=== PATIENT | male | born 1970 | race Caucasian/White ===

== ENCOUNTER → 2019-01-15 | Outpatient (CLI) | payer BC ==
--- NOTE | 2019-01-15 09:18 | REP ---
MAXILLOFACIAL CT WITHOUT CONTRAST: HISTORY: Nasal polyps. Mild mucosal thickening is present in the ethmoid, maxillary and left frontal sinuses. Minimal mucosal thickening is present in the sphenoid and right frontal sinuses. Mucosal thickening involves the osteomeatal units. The middle and inferior nasal turbinates are partially paradoxical. There is minimal deviation of the nasal septum to the right. The cribriform plate, medial lyle of the orbits and optic canals are intact. The carotid canals form a segment of the posterolateral lyle of the sphenoid sinus. Soft tissue densities are present in the nasal passage consistent with polyps. IMPRESSION: 1. Sinus mucosal thickening as described above. 2. There are soft tissue densities in the nasal passage consistent with polyps. Electronically Signed by Pio West MD 01/15/2019 09:27 A
== END ==
LOC: M RAD 07:05
PROVIDERS: ATTEND Otolaryngology
DX: J33.9 Nasal polyp, unspecified (principal); J32.0 Chronic maxillary sinusitis; J32.1 Chronic frontal sinusitis; J32.2 Chronic ethmoidal sinusitis

== ENCOUNTER → 2020-03-04 | Outpatient (REF) | payer BC | LOC: M LAB REF 16:16 | PROVIDERS: ATTEND Dermatology | DX: D22.5 Melanocytic nevi of trunk (principal) ==

== ENCOUNTER → 2021-07-27 | Outpatient (REF) | payer BC | LOC: M LAB REF 19:04 | PROVIDERS: ATTEND Physician Assistant | DX: C44.310 Basal cell carcinoma of skin of unspecified parts of face (principal) ==

== ENCOUNTER → 2021-08-07 | Outpatient (REF) | LOC: M EMP 08:15 | PROVIDERS: ATTEND Family Medicine | DX: Z11.52 Encounter for screening for COVID-19 (principal) ==

== ENCOUNTER → 2021-11-10 | Outpatient (CLI) | payer SELFPAY | LOC: M LABSMTC 12:21 | PROVIDERS: ATTEND Pediatrics | DX: Z20.822 Contact with and (suspected) exposure to COVID-19 (principal) ==

== ENCOUNTER → 2021-11-24 | Outpatient (REF) | LOC: M LABSMTC 13:08 | PROVIDERS: ATTEND Family Medicine | DX: Z20.822 Contact with and (suspected) exposure to COVID-19 (principal) ==

== ENCOUNTER → 2023-07-19 | Outpatient (CLI) | payer BC | LOC: M SLEEP HO 10:49 | PROVIDERS: ATTEND Nurse Practitioner Family | DX: R06.83 Snoring (principal); G47.30 Sleep apnea, unspecified ==